=== PATIENT | male | born 1970 | race African-American/Black ===

== ENCOUNTER 2022-09-11 11:03 | Inpatient (IN) | payer OTHER ==
[2022-09-11 11:09] VITALS: BMI 25.0
[2022-09-11] MEDS ORDERED: FAMOTIDINE 20 MG/50 ML IVPB 20 MG/50 ML MG IVPB ONE ×2 (11:59→12:32)
[2022-09-11] MEDS ORDERED: morphine CARPU-JECT 4 MG/1 ML DISP.SYRIN IVPUSH ONE (12:11)
[2022-09-11] MEDS ORDERED: SODIUM CHLORIDE 1,000 ML IV STA (12:11)
[2022-09-11] MEDS ORDERED: ONDANSETRON 4 MG/2 ML VIAL IVPUSH ONE (12:15)
[2022-09-11] MEDS ORDERED: ONDANSETRON 4 MG/2 ML VIAL ONE (12:32)
[2022-09-11] MEDS ORDERED: morphine SULFATE 4 MG/ML VIAL ONE (12:32)
[2022-09-11 13:14] LABS: HEMATOCRIT 39.6 % (35.4-49); HEMOGLOBIN 13.2 GM/dL (11.7-16.9); MCH 28.3 pg (25.7-33.7); MCHC 33.3 g/dl (32.0-35.9); MEAN CELL VOLUME 85.1 fl (80-96); MEAN PLT VOLUME 8.2 fl (7.5-11.1); PLATELET COUNT 179 10^3/uL (134-434); RBC 4.65 M/mm3 (4.00-5.60); RDW 12.4 % (11.9-15.9); WHITE BLOOD COUNT 8.8 K/mm3 (4.0-10.0)
[2022-09-11 13:24] LABS: CALCIUM 8.7 mg/dL (8.5-10.1)
[2022-09-11 13:25] LABS: ALBUMIN 3.8 g/dl (3.4-5.0); INR 1.09 (0.83-1.09); PROTHROMBIN TIME (PATIENT) 12.6 SEC (9.7-13.0)
[2022-09-11 13:27] LABS: BILIRUBIN,DIRECT 0.2 mg/dL (0.0-0.2)
[2022-09-11 13:28] LABS: ACTIVATED PTT 24.1 SECONDS (25.2-36.5)
[2022-09-11 13:29] LABS: TOT PROT 7.4 g/dl (6.4-8.2)
[2022-09-11 13:46] LABS: ANISOCYTOSIS 2+; MACROCYTOSIS 0
[2022-09-11] MEDS ORDERED: LACTATED RINGERS SOLUTION 1,000 ML/1,000 ML INFUS.BAG IV SCH (14:15)
[2022-09-11 15:25] LABS: PH,URINE 7.5 (5.0-8.0); URINE APPEARANCE CLEAR; URINE BILIRUBIN NEGATIVE (NEGATIVE); URINE COLOR YELLOW; URINE GLUCOSE (UA) NEGATIVE (NEGATIVE); URINE KETONE TRACE (NEGATIVE); URINE LEUK ESTERASE NEGATIVE (NEGATIVE); URINE NITRITE NEGATIVE (NEGATIVE); URINE PROTEIN NEGATIVE (NEGATIVE); URINE UROBILINOGEN 0.2 mg/dL (0.2-1.0)
[2022-09-11 16:43] LABS: LACTIC ACID 3.7 mmol/L (0.4-2.0)
[2022-09-11] MEDS ORDERED: PIPERACILLIN/TAZOB 4.5 GM 4.5 GM in DEXTROSE 5%-WATER 100 ML IVPB ONE (18:38)
[2022-09-11] MEDS ORDERED: PIPERACILLIN/TAZOB 4.5 GM 4.5 GM/100 ML BAG IVPB ONE (18:45)
[2022-09-11] MEDS ORDERED: morphine SULFATE 4 MG/ML VIAL IVPUSH PRN (19:37)
[2022-09-11] MEDS ORDERED: ONDANSETRON 4 MG/2 ML VIAL IVPUSH PRN (19:39)
[2022-09-11] MEDS: DEXTROSE 5%-NORMAL SALINE 1,000 ML IV SCH (20:20)
[2022-09-12] MEDS: DEXTROSE 5%-NORMAL SALINE 1,000 ML IV SCH ×2 (02:30→05:26)
[2022-09-12] MEDS ORDERED: FAMOTIDINE 20 MG/50 ML IVPB 20 MG/50 ML MG IVPB SCH (08:00)
[2022-09-12 10:34] LABS: BASO % 0.5 % (0-2.0); EOS % 0.2 % (0-4.5); HEMATOCRIT 35.8 % (35.4-49); HEMOGLOBIN 12.1 GM/dL (11.7-16.9); LYMPH % 14.6 % (8-40); MCH 28.4 pg (25.7-33.7); MEAN CELL VOLUME 83.6 fl (80-96); MEAN PLT VOLUME 7.9 fl (7.5-11.1); MONO % 10.1 % (3.8-10.2); NEUT % 74.6 % (42.8-82.8); PLATELET COUNT 148 10^3/uL (134-434); RBC 4.28 M/mm3 (4.00-5.60); RDW 12.7 % (11.9-15.9)
[2022-09-12 10:54] LABS: CALCIUM 8.2 mg/dL (8.5-10.1)
[2022-09-12 10:55] LABS: BLOOD UREA NITROGEN 9.9 mg/dL (7-18)
[2022-09-12 11:00] LABS: BILIRUBIN,TOTAL 1.7 mg/dL (0.2-1); TOT PROT 5.8 g/dl (6.4-8.2)
[2022-09-12] MEDS ORDERED: BUPIVACAINE HCL/PF 0.25% (2.5MG/ML) 10 ML VIAL ONE (12:33)
[2022-09-12] MEDS ORDERED: BUPIVACAINE HCL/PF 0.5% (5MG/ML) 10 ML VIAL ONE (12:34)
[2022-09-12] MEDS ORDERED: PROPOFOL 20 ML ONE ×2 (14:03→16:46)
[2022-09-12] MEDS ORDERED: ONDANSETRON 4 MG/2 ML VIAL ONE (14:03)
[2022-09-12] MEDS ORDERED: DEXAMETHASONE SOD PHOSPHATE 4 MG/1 ML VIAL ONE (14:03)
[2022-09-12] MEDS ORDERED: MIDAZOLAM HCL 2 MG/2 ML SINGLE DOSE VIAL ONE (14:03)
[2022-09-12] MEDS ORDERED: ROCURONIUM BROMIDE 50 MG/5 ML SYRINGE ONE (14:03)
[2022-09-12] MEDS ORDERED: LIDOCAINE HCL/PF 2% SDV 5ML VIAL ONE (14:03)
[2022-09-12] MEDS ORDERED: ceFAZolin SODIUM 1 GM VIAL IVPB ONE (15:26)
[2022-09-12] MEDS ORDERED: ONDANSETRON 4 MG/2 ML VIAL IVPUSH PRN ×3 (15:37→18:16)
[2022-09-12] MEDS ORDERED: ACETAMINOPHEN 1000 MG/100 ML BAG IVPB ONE ×2 (15:38→17:58)
[2022-09-12] MEDS ORDERED: LACTATED RINGERS SOLUTION 1,000 ML IV SCH (15:45)
[2022-09-12] MEDS ORDERED: BUPIVACAINE HCL/PF 0.5% (5 MG/ML) 30 ML VIAL IJ ONE (17:05)
[2022-09-12] MEDS ORDERED: ACETAMINOPHEN INJECTION 100 ML IVPB ONE (17:50)
[2022-09-12] MEDS ORDERED: oxyCODONE HCL 5 MG TABLET PO PRN (18:16)
[2022-09-12] MEDS ORDERED: morphine SULFATE 4 MG/ML VIAL IVPUSH PRN (18:16)
[2022-09-12] MEDS: LACTATED RINGERS SOLUTION 1,000 ML IV SCH (20:14)
[2022-09-12] MEDS ORDERED: HEPARIN NA (PORCINE) 5,000 UNITS/ML 1ML VIAL SQ SCH (22:00)
[2022-09-13 10:04] LABS: BASO % 0.2 % (0-2.0); EOS % 0.1 % (0-4.5); HEMATOCRIT 38.4 % (35.4-49); HEMOGLOBIN 12.9 GM/dL (11.7-16.9); LYMPH % 11.9 % (8-40); MCH 28.5 pg (25.7-33.7); MCHC 33.5 g/dl (32.0-35.9); MEAN PLT VOLUME 8.1 fl (7.5-11.1); NEUT % 81.8 % (42.8-82.8); PLATELET COUNT 168 10^3/uL (134-434); RBC 4.52 M/mm3 (4.00-5.60); RDW 12.3 % (11.9-15.9); WHITE BLOOD COUNT 8.7 K/mm3 (4.0-10.0)
[2022-09-13 10:35] LABS: CALCIUM 8.7 mg/dL (8.5-10.1)
[2022-09-13 10:36] LABS: ALBUMIN 3.5 g/dl (3.4-5.0); BLOOD UREA NITROGEN 9.2 mg/dL (7-18)
[2022-09-13 10:39] LABS: CREATININE 1.1 mg/dL (0.55-1.3)
[2022-09-13 10:40] LABS: BILIRUBIN,TOTAL 1.7 mg/dL (0.2-1)
[2022-09-13] MEDS: FAMOTIDINE 20 MG/50 ML IVPB 20 MG/50 ML MG IVPB SCH (11:29)
[2022-09-13] MEDS: HEPARIN NA (PORCINE) 5,000 UNITS/ML 1ML VIAL SQ SCH ×2 (11:29→22:13)
[2022-09-13] MEDS ORDERED: ACETAMINOPHEN 1000 MG/100 ML BAG IVPB PRN (13:00)
[2022-09-13] MEDS: LACTATED RINGERS SOLUTION 1,000 ML IV SCH (18:54)
[2022-09-14] MEDS: LACTATED RINGERS SOLUTION 1,000 ML IV SCH (06:41)
[2022-09-14] MEDS: FAMOTIDINE 20 MG/50 ML IVPB 20 MG/50 ML MG IVPB SCH (08:46)
[2022-09-14] MEDS: HEPARIN NA (PORCINE) 5,000 UNITS/ML 1ML VIAL SQ SCH (09:59)
[2022-09-14 10:10] LABS: BASO % 0.7 % (0-2.0); HEMATOCRIT 38.1 % (35.4-49); HEMOGLOBIN 13.1 GM/dL (11.7-16.9); LYMPH % 27.3 % (8-40); MCH 28.7 pg (25.7-33.7); MCHC 34.3 g/dl (32.0-35.9); MEAN CELL VOLUME 83.7 fl (80-96); MEAN PLT VOLUME 8.1 fl (7.5-11.1); MONO % 8.6 % (3.8-10.2); NEUT % 62.4 % (42.8-82.8); PLATELET COUNT 179 10^3/uL (134-434); RBC 4.55 M/mm3 (4.00-5.60); RDW 12.4 % (11.9-15.9); WHITE BLOOD COUNT 4.6 K/mm3 (4.0-10.0)
[2022-09-14 10:58] LABS: ALBUMIN 3.1 g/dl (3.4-5.0); BLOOD UREA NITROGEN 10.4 mg/dL (7-18); CALCIUM 8.8 mg/dL (8.5-10.1)
[2022-09-14 11:03] LABS: BILIRUBIN,TOTAL 1.2 mg/dL (0.2-1); TOT PROT 6.6 g/dl (6.4-8.2)
[2022-09-14] MEDS ORDERED: POTASSIUM CHLORIDE TABS 10 MEQ TABLET.ER (FP) PO ONE (11:12)
[2022-09-14 13:57] VITALS: BP 130/67; PULSE 70; RESP 18; TEMP 98.5
== END 2022-09-14 17:35 | disposition home health service (06) | DRG 263 ==
LOC: JER 11:03 → UNDOADMIN 18:16 → JERBED 18:16 → J5S 20:10 → JASUSAT 09-12 14:47 → J5S 09-12 15:52 → JASUSAT 09-13 11:55 → J5S 09-13 11:56 → J6S 09-13 13:39
PROVIDERS: ADMIT Specialist; ATTEND Specialist
PROC: 0FT44ZZ Resection of Gallbladder, Percutaneous Endoscopic Approach (ICD-10-PCS; principal; 2022-09-12 15:30)
DX: K81.0 Acute cholecystitis (principal); K82.A1 Gangrene of gallbladder in cholecystitis; E87.20 Acidosis, unspecified; K76.9 Liver disease, unspecified; R79.89 Other specified abnormal findings of blood chemistry; N28.1 Cyst of kidney, acquired
CPT/HCPCS: 36415; 74177-TC; 74183-TC; 76705-TC; 80053; 81003; 82248; 83605; 83690; 85025; 85610; 85730; 86704; 86708; 86803; 87340; 87517; 87804; 88304-TC; 93005; 93010; 94760; 99285-25; A9579; C9803-CS; J1644; Q9967; U0003; U0005